=== PATIENT | male | born 1965 | race Caucasian/White ===

== ENCOUNTER 2017-03-07 22:55 | Emergency (ER) | payer OTHER ==
--- NOTE | ~2017-03-07 | ER ---
PATIENT'S NAME: MABLE CLEMENT [facility] AGE: 52 Y [address] ROOM: [place] [id number] LOCATION: [facility] ADMIT DATE: 03/07/2017 ER/Outpatient Report DISCHARGE DATE: 03/08/2017 FAMILY PHYSICIAN: Maria Ines Kline MD ATTENDING PHYSICIAN: Harriet Alves Time of Arrival: 2255 hours. Time of Evaluation: 0000 hours. HISTORY OF PRESENT ILLNESS: The patient is a 52-year-old male, who was triaged in the waiting room but did remain there too, no beds available in the emergency room. The patient presents with a foreign body in his eye from 2.5 hours prior to arrival. He had irritation to his left eye after washing his face, not knowing that his had used Aveeno in the bath. He felt something kind of gritty in his eye. He tried to flush it several times at home with no relief. On arrival here, he has tearing and painful in his left eye. He denies any vision changes. No problems with the right eye. No other problems or concerns. ALLERGIES: PENICILLIN. CURRENT MEDICATIONS: Medication for cholesterol and blood pressure. MEDICAL PROBLEMS: Hypertension, hyperlipidemia. Tetanus is current within 10 years. He had it after their grandchild was born 7 months ago. SOCIAL HISTORY: The patient is . Lives here in [place]. Works at [employer]. Tobacco use, denies. Alcohol, 1 to 2 per day. Drug use, denies. REVIEW OF SYSTEMS: All systems reviewed and negative other than what is noted in the HPI. The patient does wear glasses. PHYSICAL EXAMINATION: VITAL SIGNS: Weight 92 kg, blood pressure 159/107, pulse 96, respirations 14, temperature 97.5, sats 94% on room air. GENERAL: A 52-year-old male, in mild distress. HEENT: Head: Normocephalic. Eyes: Pupils equal and reactive to light and accommodation. Extraocular movements intact. Conjunctivae injected on the left. He has lots of tearing on the left. Alcaine drops were used and pain relief was given. Visual acuity left eye 20/25. Fluorescein stain was PATIENT'S NAME: MABLE CLEMENT [facility] AGE: 52 Y [address] ROOM: [place] [id number] LOCATION: [facility] ADMIT DATE: 03/07/2017 ER/Outpatient Report DISCHARGE DATE: 03/08/2017 FAMILY PHYSICIAN: Maria Ines Kline MD ATTENDING PHYSICIAN: Harriet Alves positive for vertical abrasions on the left half of his cornea. Eyelid was everted, and there was a foreign body up along the upper aspect of his upper eyelid. This was removed with a moist cotton tip applicator and irrigation. It looked like a small piece of metal. The patient had relief after that was removed. IMPRESSION AND PLAN: Foreign body under left upper eyelid with corneal abrasion in a hockey stick fashion. Tobrex ophthalmic ointment now and t.i.d. patch for comfort. Tetanus is current and follow up with the eye doctor in 1 day. Follow up sooner if any problems or concerns. No contacts. The patient understands and agrees, and all questions have been answered. HARRIET ALVES MD CAR/modl /[id number] d: 03/08/17 0356 t: 03/08/17 0432, OUTPATIENT REPORT
== END 2017-03-08 00:35 | disposition disaster alternative care site (69) ==
LOC: GMED 22:55
PROC: 08CPXZZ Extirpation of Matter from Left Upper Eyelid, External Approach (ICD-10-PCS; principal; 2017-03-08)
DX: T15.02XA Foreign body in cornea, left eye, initial encounter (principal); T15.12XA Foreign body in conjunctival sac, left eye, initial encounter; I10 Essential (primary) hypertension; E78.5 Hyperlipidemia, unspecified; Z88.0 Allergy status to penicillin